=== PATIENT | female | born 1965 | race Native Hawaiian/Other Pacific Islander ===

== ENCOUNTER 2021-01-20 06:03 | Emergency (ER) | payer OTHER ==
[~2021-01-20] VITALS: Ht 162.6 cm; Wt 85.3 kg
[2021-01-20 06:07] VITALS: TEMP 97.9
[2021-01-20 06:40] LABS: PLATELET COUNT 233 K/uL (152-353)
[2021-01-20 06:54] LABS: POTASSIUM 3.5 mmol/L (3.6-5.2); SODIUM 140 mmol/L (136-145)
[2021-01-20 07:00] VITALS: BP 149/72
[2021-01-20 08:01] LABS: PARTIAL THROMBOPLASTIN TIME 20.5 SECONDS (24.5-33.6)
== END 2021-01-20 07:43 | disposition home or self-care (01) ==
LOC: ED 06:03
PROVIDERS: Hospitalist
DX: R42 Dizziness and giddiness (principal); E86.0 Dehydration; R55 Syncope and collapse
CPT/HCPCS: 36415; 80053; 80320; 82550; 83880; 84484; 85027; 85610; 85730; 93005; 96360; 96361; 96374; 96375; 99284; J2405

== ENCOUNTER 2021-06-01 10:30 | Outpatient (CLI) | payer OTHER | END 2021-06-01 20:12 | disposition home or self-care (01) | LOC: LAB 10:30 | PROVIDERS: ATTEND Nurse Practitioner Family | DX: U07.1 COVID-19 (principal); R05 Cough; R50.9 Fever, unspecified; R11.0 Nausea; Z20.822 Contact with and (suspected) exposure to COVID-19 | CPT/HCPCS: 87635; G2023; U0003 ==

== ENCOUNTER 2022-08-27 14:22 | Outpatient (CLI) | payer OTHER | END 2022-08-27 20:26 | disposition home or self-care (01) | LOC: RAD 14:22 | PROVIDERS: ATTEND Nurse Practitioner Family | DX: R05.1 Acute cough (principal); J34.89 Other specified disorders of nose and nasal sinuses; J02.9 Acute pharyngitis, unspecified; R52 Pain, unspecified ==